=== PATIENT | male | born 1970 | race Caucasian/White ===

== ENCOUNTER 2021-02-23 22:15 | Observation (INO) | payer BC ==
[2021-02-23 22:48] VITALS: BMI 29.9
[2021-02-23] MEDS ORDERED: Senokot S 8.6-50 MG TAB PO PRN (22:51)
[2021-02-23] MEDS ORDERED: Ondansetron PF 4 MG/2 ML Vial IVP PRN (22:51)
[2021-02-23] MEDS ORDERED: Calcium Carbonate 500 MG ChewTAB PO PRN (22:51)
[2021-02-23] MEDS ORDERED: Acetaminophen 325 MG TAB PO PRN (22:51)
[2021-02-23] MEDS ORDERED: HYDROcodone/Acetaminophen 5/325 mg Tablet PO PRN ×2 (22:51)
[2021-02-23] MEDS ORDERED: Cyclobenzaprine 10 MG TAB PO PRN (23:00)
[2021-02-23] MEDS ORDERED: hydrALAZINE 20 MG/ML VIAL SLOW IVP PRN (23:00)
[2021-02-23] MEDS ORDERED: Lactated Ringer's 1,000 ML IV SCH (23:00)
[2021-02-23] MEDS ORDERED: predniSONE 20 MG TAB PO SCH (23:15)
[2021-02-23] MEDS ORDERED: diphenhydrAMINE 50 MG/ML VIAL IVP SCH (23:15)
[2021-02-23] MEDS ORDERED: Ketorolac Tromethamine 30 MG/ML VIAL IVP SCH (23:15)
[2021-02-23] MEDS ORDERED: Metoclopramide HCl 10 MG/2 ML VIAL IVP SCH (23:15)
[2021-02-24] MEDS: METHadone HCl 10 MG TAB PO SCH ×2 (08:33→14:39)
[2021-02-24] MEDS ORDERED: NIFEdipine XL 60 MG TAB PO SCH (09:00)
[2021-02-24] MEDS ORDERED: Losartan Potassium 50 MG TAB PO SCH (09:00)
[2021-02-24 19:24] VITALS: BP 133/84; TEMP 97.8
[2021-02-24] MEDS ORDERED: Enoxaparin Sodium 40 MG/0.4 ML SYRINGE SC SCH (21:00)
[2021-02-25] MEDS ORDERED: NIFEdipine XL 90 MG TAB PO SCH (09:00)
== END 2021-02-24 19:44 | disposition home or self-care (01) ==
LOC: INTOOBSV 22:15 → CSHTELE 22:15
PROVIDERS: ADMIT Student in an Organized Health Care Education/Training Program; ATTEND Internal Medicine
DX: R51.9 Headache, unspecified (principal); I10 Essential (primary) hypertension; M47.22 Other spondylosis with radiculopathy, cervical region; R42 Dizziness and giddiness; G89.29 Other chronic pain; F11.90 Opioid use, unspecified, uncomplicated; K21.9 Gastro-esophageal reflux disease without esophagitis; Q07.00 Arnold-Chiari syndrome without spina bifida or hydrocephalus; Z79.899 Other long term (current) drug therapy; Z87.891 Personal history of nicotine dependence
CPT/HCPCS: 70450; 72125; 84443; 85652; 86140; 93306; 93880; 96374; 96375; G0378; J0360; J1200; J1885; J2765; J7120; J7512